=== PATIENT | female | born 1970 | race Caucasian/White ===

== ENCOUNTER → 2016-07-09 | Outpatient (CLI) | payer OTHER ==
--- NOTE | 2016-07-11 07:56 | MM ---
Reason for exam: screening (asymptomatic). Last mammogram was performed 3 years and 4 months ago. History: Family history of breast cancer in mother at age 42, breast cancer in sister at age 53, and breast cancer in paternal grandmother. Benign left mammotome panel of the left breast, September 08, 2012. Physical Findings: A clinical breast exam by your physician is recommended on an annual basis and results should be correlated with mammographic findings. MG Screening Mammo w CAD Bilateral CC and MLO view(s) were taken. Prior study comparison: September 01, 2012, bilateral digital screening mammo w/CAD. Previous mammotome biopsy in the left breast. No significant changes when compared with prior studies. ASSESSMENT: Negative, BI-RAD 1 RECOMMENDATION: Routine screening mammogram of both breasts in 1 year.
== END | disposition home or self-care (01) ==
LOC: RADMAMWWP 13:14
PROVIDERS: ATTEND Obstetrics & Gynecology
DX: Z12.31 Encounter for screening mammogram for malignant neoplasm of breast (principal); Z80.3 Family history of malignant neoplasm of breast

== ENCOUNTER → 2016-08-02 | Outpatient (CLI) | payer OTHER ==
[2016-08-02 17:28] LABS: Basophils # (A) 0.1 k/uL (0-0.2); Basophils % (A) 1 %; CH 32.3; CHCM 32.5; Eosinophils # (A) 0.4 k/uL (0-0.7); Eosinophils % (A) 6 %; HCT 43.4 % (34.0-46.0); HDW 2.41; HGB 13.9 gm/dL (11.4-16.0); Luc % (Auto) 2; Lymphocytes # (A) 1.8 k/uL (1.0-4.8); Lymphocytes % (A) 25 %; MCH 31.8 pg (25.0-35.0); MCHC 31.9 g/dL (31.0-37.0); MCV 99.8 fL (80.0-100.0); Mean Platelet Volume 8.9; Monocytes # (A) 0.6 k/uL (0-1.0); Monocytes % (A) 8 %; Neutrophils # (A) 4.3 k/uL (1.3-7.7); Neutrophils % (A) 60 %; RBC 4.35 m/uL (3.80-5.40); RDW 13.3 % (11.5-15.5); WBC 7.2 k/uL (3.8-10.6); WBC (Perox) 6.87
== END | disposition home or self-care (01) ==
LOC: LABPAT 15:21
PROVIDERS: ATTEND Obstetrics & Gynecology
DX: Z01.812 Encounter for preprocedural laboratory examination (principal); Z13.29 Encounter for screening for other suspected endocrine disorder
CPT/HCPCS: 84439; 84443; 85025

== ENCOUNTER 2016-08-13 06:54 | Day surgery (SDC) | payer OTHER ==
[2016-08-12 08:39] VITALS: BMI 25.7
--- NOTE | 2016-08-12 09:11 | P.HPOB ---
History of Present Illness H&P Date: 08/12/16 Chief Complaint: menorrhagia 45 year old presents for D&C hysterosocpy and endometrial ablation with NovaSure. Review of Systems All systems: negative Constitutional: Denies chills, Denies fever Eyes: denies blurred vision, denies pain Ears, nose, mouth and throat: Denies headache, Denies sore throat Cardiovascular: Denies chest pain, Denies shortness of breath Respiratory: Denies cough Gastrointestinal: Denies abdominal pain, Denies diarrhea, Denies nausea, Denies vomiting Genitourinary: Denies dysuria, Denies hematuria Musculoskeletal: Denies myalgias Integumentary: Denies pruritus, Denies rash Neurological: Denies numbness, Denies weakness Psychiatric: Denies anxiety, Denies depression Endocrine: Denies fatigue, Denies weight change Past Medical History Past Medical History: Osteoarthritis (OA) Additional Past Medical History / Comment(s): hx migraine 1991, varicose veins , 3 bulging disks, heavy menses History of Any Multi-Drug Resistant Organisms: None Reported Additional Past Surgical History / Comment(s): breast biopsy Past Anesthesia/Blood Transfusion Reactions: Motion Sickness Past Psychological History: No Psychological Hx Reported Smoking Status: Current every day smoker Past Alcohol Use History: None Reported Additional Past Alcohol Use History / Comment(s): smokes 1/2 - 1 PPD for past 5 yrs Past Drug Use History: None Reported - Past Family History Mother Family Medical History: Cancer Sister(s) Family Medical History: Cancer Medications and Allergies Home Medications Medication Instructions Recorded Confirmed Type Cyclobenzaprine [Flexeril] 10 mg PO TID PRN 08/12/16 08/12/16 History Ibuprofen [Motrin] 200 - 400 mg PO Q6HR PRN 08/12/16 08/12/16 History Iron(Dose Unknown) 1 tab PO DAILY 08/12/16 08/12/16 History Allergies Allergy/AdvReac Type Severity Reaction Status Date / Time Penicillins Allergy Unknown Verified 08/12/16 08:27 prochlorperazine edisylate Allergy Unknown Verified 08/12/16 08:27 [From Compazine] prochlorperazine maleate Allergy Unknown Verified 08/12/16 08:27 [From Compazine] Exam Osteopathic Statement: *. No significant issues noted on an osteopathic structural exam other than those noted in the History and Physical/Consult. - Vital Signs Vital signs: Intake and Output 08/11/16 08/12/16 08/12/16 22:59 06:59 14:59 Other: Weight 68.039 kg Patient Weight 08/13/16 06:59 Weight 68.039 kg HEart: RRR Lungs: CTAB Abdomen: soft, nontender Extremeties: neg angie's Assessment and Plan (1) Menorrhagia Status: Acute Plan: 1. D&C hysterosocpy and endometrial ablation with NovaSure
[~2016-08-13 06:54] MED LIST: DEXAMETHASONE SOD PHOSPHATE 10 MG/ML 1 ML VIAL IV ONE; HYDROmorphone 1 MG/ML 1 ML SYRINGE IVP PRN; LACTATED RINGERS 1,000 ML IV SCH; MIDAZOLAM 2 MG/2 ML VIAL IV PRN; ONDANSETRON 4 MG/2 ML VIAL IVP ONE; Pre Op ABX Message 1 EACH MISC MISCELLANE ONE; SCOPOLAMINE 1.5MG/72HR PATCH TRANSDERM ONE
[2016-08-13] MEDS ORDERED: LIDOCAINE 1% 20 ML VIAL (10MG/ML) FOR IV START INTRADERMA ONE (07:42)
[2016-08-13] MEDS ORDERED: PROPOFOL 10 MG/ML 20 ML VIAL IV ONE (07:56)
[2016-08-13] MEDS ORDERED: MIDAZOLAM 2 MG/2 ML VIAL ONE (07:56)
[2016-08-13] MEDS ORDERED: fentaNYL (PF) 50 MCG/ML 2 ML AMP ONE (07:56)
[2016-08-13] MEDS ORDERED: KETOROLAC 30 MG/ML 1 ML VIAL ONE (07:56)
--- NOTE | 2016-08-13 08:19 | P.OP ---
Date of Procedure: 08/13/16 Preoperative Diagnosis: 1. Menorrhagia Postoperative Diagnosis: 1. Menorrhagia Procedure(s) Performed: D&C, hysteroscopy, endometrial ablation with NovaSure Anesthesia: MAC Surgeon: Rachele Herrera Estimated Blood Loss (ml): 3 IV fluids (ml): 500 Urine output (ml): 20 Pathology: other (Endometrial curettings) Condition: stable Disposition: PACU Operative Findings: Endometrial length 6.0 cm, width 4.3 cm, power 142 W, time of ablation 52 seconds. Adequate ablation after NovaSure Description of Procedure: Patient is taken the operating room where general anesthesia was obtained without difficulty. She was prepped and draped in normal sterile fashion dorsal lithotomy position, legs placed in the [place] cane stirrups. Bladder was drained of all urine. Weighted speculum placed in the vagina and the anterior lip the cervix was grasped with serial tooth tenaculum. The uterus sounded to 9cm and the cervix sounded to 3 cm making the cavity length 6 cm. The cervix was dilated to #8 Hegar dilator. Hysteroscopy was then performed. Both ostia were visualized and there was a smooth contour of the uterus. Sharp curet was then gently used to obtain endometrial curettings. The NovaSure was introduced into the uterus with a cavity length of 6 cm, width 4.3 cm. after cavity assessment was passed, the time of ablation was 52 seconds at 142 W. Hysteroscopy was again performed and adequate ablation was noted. All instruments removed from the vagina. Patient tolerated the procedure well, sponge and instrument counts were correct 2 and she was taken to recovery in stable condition.
[2016-08-13 08:29] VITALS: TEMP 97.8
[2016-08-13] MEDS ORDERED: HYDROmorphone 1 MG/ML 1 ML SYRINGE IVP ONE ×2 (08:41→08:45)
[2016-08-13 08:47] VITALS: RESP 16
[2016-08-13] MEDS ORDERED: LACTATED RINGERS 1,000 ML IV ONE (09:00)
[2016-08-13] MEDS ORDERED: METOCLOPRAMIDE 5 MG/ML 2 ML VIAL IVP ONE (09:00)
[2016-08-13] MEDS ORDERED: PROMETHAZINE INJ 25 MG/ML 1 ML VIAL IVPB ONE (09:53)
[2016-08-13 10:13] VITALS: BP 129/91; PULSE 62
== END 2016-08-13 11:23 | disposition home or self-care (01) ==
LOC: OR 06:54
PROVIDERS: ATTEND Obstetrics & Gynecology
DX: N92.0 Excessive and frequent menstruation with regular cycle (principal); N72 Inflammatory disease of cervix uteri; N87.9 Dysplasia of cervix uteri, unspecified; F17.200 Nicotine dependence, unspecified, uncomplicated; M19.90 Unspecified osteoarthritis, unspecified site; G89.29 Other chronic pain; M54.5 Low back pain; Z79.1 Long term (current) use of non-steroidal anti-inflammatories (NSAID); Z79.899 Other long term (current) drug therapy; Z88.0 Allergy status to penicillin; Z88.8 Allergy status to other drugs, medicaments and biological substances
CPT/HCPCS: 81025; 88305; 58563; J2250; J1100; J2550; J2765; J2405; J3010; J1885; J1170; J2704

== ENCOUNTER → 2017-09-11 | Outpatient (CLI) | payer OTHER ==
--- NOTE | 2017-09-12 13:25 | MM ---
Reason for exam: screening (asymptomatic). Last mammogram was performed 1 year and 2 months ago. History: Family history of breast cancer in mother at age 42, breast cancer in sister at age 53, and breast cancer in paternal grandmother. Benign left mammotome panel of the left breast, September 08, 2012. Physical Findings: A clinical breast exam by your physician is recommended on an annual basis and results should be correlated with mammographic findings. MG Screening Mammo w CAD Bilateral CC and MLO view(s) were taken. Prior study comparison: July 09, 2016, bilateral MG screening mammo w CAD. March 09, 2013, left diagnostic mammogram w/CAD. There are scattered fibroglandular densities. There is chronic nodularity bilaterally. No significant changes when compared with prior studies. ASSESSMENT: Benign, BI-RAD 2 RECOMMENDATION: Routine screening mammogram of both breasts in 1 year.
== END | disposition home or self-care (01) ==
LOC: RADMAMWWP 16:28
PROVIDERS: ATTEND Pediatrics
DX: Z12.31 Encounter for screening mammogram for malignant neoplasm of breast (principal)
CPT/HCPCS: 77067

== ENCOUNTER 2020-04-02 15:16 | Emergency (ER) | payer OTHER ==
[2020-04-02 15:44] VITALS: RESP 18; TEMP 98.9
[2020-04-02] MEDS ORDERED: DIAZEPAM 5 MG/ML 2 ML INJ IM STA (16:00)
[2020-04-02] MEDS ORDERED: MECLIZINE 12.5 MG TAB PO STA (16:01)
--- NOTE | 2020-04-02 16:46 | ED ---
Head Injury HPI - General Chief complaint: Head Injury Stated complaint: Head Injury Fri/nausea Time Seen by Provider: 04/02/20 15:51 Source: patient Mode of arrival: wheelchair Limitations: no limitations - History of Present Illness Initial comments: Patient 49-year-old female presenting to the emergency department with a chief complaint of head injury. Patient states 2 days ago she was carrying a large clock when it fell forward on top of her head and it shattered glass. Patient reports there was lot of glass that she attempted to remove from a hair afterwards she developed a headache with impact occurred. Denies any loss of consciousness but states she almost immediately developed vertigo or a whole room spinning around her. States she does have paroxysmal benign vertigo which she is usually able to control with [id number] medication. Not this time. She denies any visual changes, lightheadedness, chest pain or shortness of br eath. She does not take blood thinners. - Related Data Home Medications Medication Instructions Recorded Confirmed Cyclobenzaprine [Flexeril] 10 mg PO TID PRN 08/12/16 08/13/16 Ibuprofen [Motrin] 200 - 400 mg PO Q6HR PRN 08/12/16 08/12/16 Iron(Dose Unknown) 1 tab PO DAILY 08/12/16 08/13/16 Previous Rx's Medication Instructions Recorded traMADol HCl [Ultram] 50 mg PO Q4H PRN #20 tab 03/10/14 Meclizine [Antivert] 25 mg PO TID PRN #15 tab 04/02/20 Allergies/Adverse reactions: Allergies Allergy/AdvReac Type Severity Reaction Status Date / Time Penicillins Allergy Unknown Verified 04/02/20 15:44 prochlorperazine edisylate Allergy Unknown Verified 04/02/20 15:44 [From Compazine] prochlorperazine maleate Allergy Unknown Verified 04/02/20 15:44 [From Compazine] Review of Systems ROS Statement: Those systems with pertinent positive or pertinent negative responses have been documented in the HPI. ROS Other: All systems not noted in ROS Statement are negative. Past Medical History Past Medical History: No Reported History History of Any Multi-Drug Resistant Organisms: None Reported Additional Past Surgical History / Comment(s): breast biopsy, cautery of uterus, Past Psychological History: No Psychological Hx Reported Smoking Status: Current every day smoker Past Alcohol Use History: None Reported Past Drug Use History: None Reported General Exam Limitations: no limitations General appearance: alert, in no apparent distress Head exam: Present: atraumatic, normocephalic, normal inspection. Absent: other (Negative Loo sign, raccoon eyes, hemotympanum.) Eye exam: Present: normal appearance, PERRL, EOMI, nystagmus (Very mild lateral) Pupils: Present: normal accommodation ENT exam: Present: normal exam, normal oropharynx, mucous membranes moist, TM's normal bilaterally, normal external ear exam Neck exam: Present: normal inspection, full ROM. Absent: tenderness Respiratory exam: Present: normal lung sounds bilaterally. Absent: respiratory distress, wheezes, rales Cardiovascular Exam: Present: regular rate, normal heart sounds Extremities exam: Present: normal inspection, full ROM, normal capillary refill, other (+2 ulnar and radial pulses bilaterally.). Absent: tenderness Back exam: Present: normal inspection, full ROM. Absent: tenderness, CVA tenderness (R), CVA tenderness (L) Neurological exam: Present: alert, oriented X3, normal gait Psychiatric exam: Present: normal affect, normal mood Skin exam: Present: warm, dry, intact, normal color Course Vital Signs 04/02/20 04/02/20 15:41 16:44 Temperature 98.9 F Pulse Rate 93 72 Respiratory 18 18 Rate Blood Pressure 132/88 120/83 O2 Sat by Pulse 100 99 Oximetry Medical Decision Making - Medical Decision Making Patient is a 49-year-old female presenting to emergency Department with chief complaint of a head injury. Physical examination is unremarkable. Patient doesn't history of vertigo and she has been having vertigo since the incident occurred 2 days ago. Very mild lateral nystagmus. Patient was given 2 mg of Valium and [address] of the brain and C-spine is unremarkable. On reevaluation, patient reports improvement in symptoms. Patient will be discharged with Antivert. She was advised to return to emergency department if symptoms worsen. Case discussed with physician. She is to follow with the primary care Disposition Clinical Impression: Concussion, Head injury Disposition: HOME SELF-CARE Condition: Stable Instructions (If sedation given, give patient instructions): Concussion (ED) Additional Instructions: Take prescribed medication as directed. Follow up with her primary care physician. Return to emergency department if symptoms worsen. Prescriptions: Meclizine [Antivert] 25 mg PO TID PRN #15 tab PRN Reason: Vertigo Is patient prescribed a controlled substance at d/c from ED?: No Referrals: Leonardo Amador MD [Primary Care Provider] - 1-2 days Time of Disposition: 17:28
--- NOTE | 2020-04-02 17:01 | CT ---
EXAMINATION TYPE: CT brain cspine wo con DATE OF EXAM: 04/02/2020 COMPARISON: 02/19/2010 HISTORY: Dizziness post head injury x2 days CT DLP: 1332.3 mGycm Automated exposure control for dose reduction was used. Ventricles have normal size. There is no mass effect nor midline shift. There is no sign of intracran ial hemorrhage. The calvarium is intact. There is no evidence of cerebral edema. Cervical vertebra have normal alignment. There is spondylotic changes from C4 to C7 with spurring of the endplates. Facet joints are intact. Skull base is intact. There is normal aeration of the mastoid sinuses. Occipital bone is intact. Prevertebral soft tissues are intact. IMPRESSION: Negative CT scan of the brain. Spondylotic changes in the lower cervical spine. Brain unchanged compared to old exam. There is progression of the degenerative spur formation of the cervical spine compared to old exam.
[2020-04-02 17:47] VITALS: BP 123/81; PULSE 75
== END 2020-04-02 17:48 | disposition home or self-care (01) ==
LOC: EC 15:16
DX: S06.0X0A Concussion without loss of consciousness, initial encounter (principal); F17.200 Nicotine dependence, unspecified, uncomplicated; Z88.0 Allergy status to penicillin; Z88.8 Allergy status to other drugs, medicaments and biological substances; W22.8XXA Striking against or struck by other objects, initial encounter
CPT/HCPCS: 99283 ×2; 96372 ×2; 72125; 70450; J3360

== ENCOUNTER → 2021-11-06 | Outpatient (CLI) | payer OTHER ==
--- NOTE | 2021-11-06 20:44 | MM ---
Reason for Exam: Screening (asymptomatic). Last mammogram was performed 4 year(s) and 2 month(s) ago. Patient History: Menarche at age 10. First Full-Term at age 21. Postmenopausal. 09/08/2012, Benign Core Biopsy on the left side. Paternal grandmother had breast cancer, age 50. Sister had breast cancer, left, age 53. Mother had breast cancer, left, age 42. Risk Values: Nicole 5 year model risk: 5.3%. NCI Lifetime model risk: 38.3%. Film Views: Bilateral CC views were taken. Bilateral MLO views were taken. Prior Study Comparison: 03/09/2013 Left Diagnostic Mammogram, [facility]. 07/09/2016 Bilateral Screening Mammogram, [facility]. 09/11/2017 Bilateral Screening Mammogram, [facility]. Tissue Density: There are scattered fibroglandular densities. Findings: Analyzed By CAD. Microclip in the left breast from prior biopsy. There is an asymmetric density in both breasts are unchanged. Nodularity Central right cc view is smaller from prior exam. Overall Assessment: Benign, BI-RAD 2 Management: Screening Mammogram of both breasts in 1 year. A clinical breast exam by your physician is recommended on an annual basis and results should be correlated with mammographic findings. Also, the patient should continue monthly self breast exams.
== END | disposition home or self-care (01) ==
LOC: RADMAMWWP 10:07
PROVIDERS: ATTEND Pediatrics
DX: Z12.31 Encounter for screening mammogram for malignant neoplasm of breast (principal); Z78.0 Asymptomatic menopausal state; Z80.3 Family history of malignant neoplasm of breast
CPT/HCPCS: 77067